=== PATIENT | male | born 1945 | race Caucasian/White ===

== ENCOUNTER 2022-09-26 22:55 | Emergency (ER) | payer OTHER ==
[2022-09-26 23:27] LABS: BASOPHILS ABSOLUTE AUTO 0.03 K/mm3 (0.01-0.08); BASOPHILS PERCENT AUTO 0.3 % (0.1-1.2); EOSINOPHILS ABSOLUTE AUTO 0.22 K/mm3 (0.04-0.54); EOSINOPHILS PERCENT AUTO 2.5 (0.8-7.0); HEMATOCRIT 45.6 % (40.1-51.0); HEMOGLOBIN 15.5 gm/dl (13.7-17.5); IMMATURE GRAN ABSOLUTE AUTO 0.02 K/mm3 (0.00-0.10); IMMATURE GRAN PERCENT AUTO 0.2 % (<=1.0); LYMPHOCYTES ABSOLUTE AUTO 2.21 K/mm3 (1.32-3.57); LYMPHOCYTES PERCENT AUTO 24.8 % (21.8-53.1); MEAN CORPUSCULAR HEMOGLOBIN 32.5 pg (25.7-32.2); MEAN CORPUSCULAR VOLUME 95.6 fl (79.0-92.2); MEAN PLATELET VOLUME 9.1 fl (9.4-12.3); MONOCYTES ABSOLUTE AUTO 0.92 K/mm3 (0.30-0.82); MONOCYTES PERCENT AUTO 10.3 % (5.3-12.2); NEUTROPHILS ABSOLUTE AUTO 5.52 K/mm3 (1.78-5.38); NEUTROPHILS PERCENT AUTO 61.9 % (34.0-67.9); PLATELET COUNT,PLT 218 K/mm3 (163-337); RED BLOOD CELL COUNT 4.77 M/mm3 (4.63-6.08); WHITE BLOOD CELL COUNT,WBC 8.92 K/mm3 (4.23-9.07)
[2022-09-26 23:36] LABS: INR 1.02; PROTHROMBIN TIME 10.9 SECONDS (9.7-12.0)
[2022-09-26 23:40] LABS: A/G RATIO 1.3 (1-2); ALBUMIN 3.8 g/dl (3.4-5.0); ANION GAP 14.2 (5-15); BILIRUBIN TOTAL 1.1 mg/dL (0.2-1.0); BUN/CREATININE RATIO 14.7 (14-18); CALCIUM 8.9 mg/dL (8.5-10.1); CREATININE 1.7 mg/dL (0.7-1.3); EST CRCL DRUG DOSING (CG) 39.94 mL/min; POTASSIUM,K 4.2 mEq/L (3.5-5.1); PROTEIN TOTAL,TP 6.8 g/dl (6.4-8.2)
[2022-09-26 23:50] LABS: APPEARANCE,URINE CLEAR (Clear); BILIRUBIN,URINE NEGATIVE (Negative); COLOR,URINE YELLOW (Yellow); GLUCOSE,URINE 2+ (Negative); KETONES,URINE TRACE (Negative); LEUKOCYTE ESTERASE,URINE NEGATIVE (Negative); NITRITE,URINE NEGATIVE (Negative); OCCULT BLOOD,URINE NEGATIVE (Negative); PROTEIN,URINE NEGATIVE (Negative); UROBILINOGEN,URINE 0.2 (0.2-1.0)
[2022-09-26 23:57] LABS: BACTERIA,URINE NOT SEEN /hpf (FEW); EPITHELIAL CELLS,URINE NOT SEEN /hpf (0-5); MUCUS,URINE NOT SEEN /hpf (FEW); RBC,URINE 0-5 /hpf (0-5); WBC,URINE 0-5 /hpf (0-5)
[2022-09-26 23:59] LABS: BARBITURATE SCREEN,URINE NEGATIVE (CUTOFF=200); BENZODIAZEPINES SCREEN,URINE NEGATIVE (CUTOFF=150); BUPRENORPHINE SCREEN,URINE NEGATIVE (CUTOFF=10); METHADONE SCREEN, URINE NEGATIVE (CUT0FF=200); METHAMPHETAMINES SCREEN, URINE NEGATIVE (CUTOFF=500); OXYCODONE SCREEN,URINE NEGATIVE (CUT0FF=100); PROPOXYPHENE SCREEN,URINE NEGATIVE (CUTOFF=300); THC SCREEN,URINE 20 NG/ML NEGATIVE (CUTOFF=50)
[2022-09-27] LABS: AMPHETAMINES SCREEN, URINE NEGATIVE (CUTOFF=500)
== END 2022-09-27 01:50 | disposition home or self-care (01) ==
LOC: JD.ED 22:55
DX: R55 Syncope and collapse (principal); S01.81XA Laceration without foreign body of other part of head, initial encounter; M25.561 Pain in right knee; E11.9 Type 2 diabetes mellitus without complications; E66.9 Obesity, unspecified; Z68.35 Body mass index [BMI] 35.0-35.9, adult; Z96.651 Presence of right artificial knee joint; Z79.01 Long term (current) use of anticoagulants; Z79.899 Other long term (current) drug therapy
CPT/HCPCS: 12011; 36415; 70450; 70450-26; 72125; 72125-26; 73562-26-RT; 73562-RT; 80053; 80306; 80307; 81001; 83605; 85025; 85610; 93005; 99285